=== PATIENT | male | born 1950 | race Caucasian/White ===

== ENCOUNTER 2017-01-21 09:41 | Emergency (ER) | payer OTHER, MEDICARE ==
[~2017-01-21] VITALS: Ht 177.8 cm; Wt 79.5 kg
[~2017-01-21 09:41] MED LIST: ALDACTONE 25MG25 M1 PO; ASPIRIN 32325 MG/TAB PO; ASPIRIN 81M81 MG/TA2 PO; ASPIRIN E.C. 8181 MG PO; ATORVASTATIN PO; BRILINTA90 MG PO; CARAFATE1 GM PO; CEPHALEXIN500 M1 PO; CLARITIN 1010 MG/TAB PO; CLEOCIN HC150 MG/CAP PO; COREG 6.256.25 MG/TA PO; COZAAR 25MG25 MG/TAB PO; EPA/GLA1 SGL PO; LASIX 20MG TABL20 MG PO; LASIX 40MG TABL40 MG PO; METOPROLOL25 MG PO; MULTIVITAMIN1 TA1 PO; NORCO 325 MG-51 TAB PO; PLAVIX 75MG TAB75 MG PO; ZOFRAN 4MG T4 MG/TAB PO
[2017-01-21 09:43] VITALS: BP 130/80; TEMP 98.3
[2017-01-21 10:22] LABS: BASO # 0.1 (0.0-0.2); BASO % 0.5 % (0.0-2.0); EOS # 0.2 (0.0-0.7); EOS % 1.4 % (0-4.0); GRAN # 9.4 (1.4-6.5); GRAN % 74.7 % (42.2-75.2); HEMATOCRIT 47.1 % (42.0-52.0); HEMOGLOBIN 16.3 g/dl (13.5-18.0); LYMPH # 1.4 (1.2-3.4); LYMPH % 11.4 % (20.0-51.0); MEAN CELL VOLUME 94 fl (80.0-100.0); MEAN CORPUSCULAR HEMOGLOBIN 32 pg (27.0-31.0); MEAN CORPUSCULAR HGB CONC 35 g/dl (33.0-37.0); MEAN PLATELET VOLUME 9.5 fl (7.4-10.4); MONO # 1.5 (0.1-0.6); MONO % 11.8 % (1.7-9.3); PLATELET COUNT 255 K/mm3 (130-400); RED BLOOD COUNT 5.04 M/mm3 (4.20-5.60); REDCELL DISTRIBUTION WIDTH-CV 12.7 % (11.5-14.5); WHITE BLOOD COUNT 12.5 K/mm3 (4.8-10.8)
[2017-01-21 10:39] LABS: ADJUSTED CALCIUM 9.2 mg/dL (8.4-10.2); ALBUMIN 4.1 gm/dL (3.5-5.0); BILIRUBIN,TOTAL 1.4 mg/dL (0.0-1.0); CALCIUM 9.3 mg/dL (8.4-10.2); CREATININE, serum 2.01 mg/dL (0.66-1.25); POTASSIUM 4.1 mmol/L (3.4-5.0); TOTAL PROTEIN 7.3 gm/dL (6.4-8.2)
[2017-01-21 11:38] LABS: PH 5 (5-8); SQUAMOUS EPITHELIAL None Seen /hpf; URINE APPEARANCE Clear; URINE BACTERIA None Seen /hpf; URINE BILIRUBIN Negative (NEGATIVE); URINE BLOOD 2+ (NEGATIVE); URINE COLOR Yellow; URINE GLUCOSE Negative (NEGATIVE); URINE KETONE Negative (NEGATIVE); URINE RBC 20-50 /hpf; URINE UROBILINOGEN Negative (NEGATIVE)
[2017-01-21 11:41] LABS: URINE WBC 20-50 /hpf
[2017-01-21] MEDS ORDERED: FLOMAX 0.40.4 MG/CAP PO (14:02)
[2017-01-21] MEDS ORDERED: PERCOCET 325 MG1 TA2 PO (14:02)
[2017-01-21] MEDS ORDERED: LEVAQUIN 5500 MG/TA1 PO (14:02)
[2017-01-21 14:38] VITALS: PULSE 78
== END 2017-01-21 14:42 | disposition home or self-care (01) ==
LOC: COL.ER 09:41
PROVIDERS: Nurse Practitioner
DX: N20.1 Calculus of ureter (principal); N39.0 Urinary tract infection, site not specified; I11.0 Hypertensive heart disease with heart failure; I50.9 Heart failure, unspecified; I25.10 Atherosclerotic heart disease of native coronary artery without angina pectoris; Z87.891 Personal history of nicotine dependence; Z79.82 Long term (current) use of aspirin; Z79.02 Long term (current) use of antithrombotics/antiplatelets; Z95.0 Presence of cardiac pacemaker; Z98.890 Other specified postprocedural states
CPT/HCPCS: J0696; J1170; J7040

== ENCOUNTER 2019-01-08 07:39 | Day surgery (SDC) | payer BC, MEDICARE ==
[2019-01-08] VITALS (11 sets, daily range): BP systolic 90–123; BP diastolic 69–94; PULSE 52–107; TEMP 97.4–97.9
[~2019-01-08] VITALS: Ht 177.8 cm; Wt 75.0 kg
[~2019-01-08 07:39] MED LIST changes: -ATORVASTATIN PO; +FLOMAX 0.40.4 MG/CAP PO; +LEVAQUIN 5500 MG/TA1 PO; +LIPITOR 40MG TA40 MG PO; -MULTIVITAMIN1 TA1 PO; +ONE-A-DAY ESSE1 EACH PO; +PERCOCET 325 MG1 TA2 PO
[2019-01-08 08:23] LABS: HEMATOCRIT 49.6 % (42.0-52.0); HEMOGLOBIN 16.7 g/dl (13.5-18.0); MEAN CELL VOLUME 95 fl (80.0-100.0); MEAN CORPUSCULAR HEMOGLOBIN 32 pg (27.0-31.0); MEAN CORPUSCULAR HGB CONC 34 g/dl (33.0-37.0); MEAN PLATELET VOLUME 9.3 fl (7.4-10.4); PLATELET COUNT 298 K/mm3 (130-400); RED BLOOD COUNT 5.22 M/mm3 (4.20-5.60); REDCELL DISTRIBUTION WIDTH-CV 13.6 % (11.5-14.5)
[2019-01-08 08:29] LABS: PROTHROMBIN TIME 11.5 SECONDS (9.7-12.8)
[2019-01-08 08:34] LABS: CALCIUM 9.2 mg/dL (8.4-10.2); CREATININE, serum 1.13 (0.66-1.25); POTASSIUM 4.9 mmol/L (3.4-5.0)
[2019-01-08] MEDS ORDERED: LASIX 40MG TABL40 MG PO (09:25)
--- NOTE | 2019-01-08 12:38 | NUR ---
SEE MERGE DOCUMENTATION FOR MEDICATION ADMINISTRATION TIMES AND INTRA/POST PROCEDURE SEDATION ASSESSMENTS.
--- NOTE | 2019-01-08 14:50 | NUR ---
Pt returned to EU 12 per bed s/p IVONE/gen change. Pt resting well. See Raphael's note.
--- NOTE | 2019-01-08 15:10 | NUR ---
PT TRANSFERRED TO [facility] AT THIS TIME. BEDSIDE REPORT WITH SHREE KNOWLES. VS MONITORS PLACED AT THIS TIME. SBP 108 AT THIS TIME. PT REMAINS ON 2L/NC WITH SPO2 RANGING 88-91%. PT DENIES SOA, AND BREATHING IS NOTED NON-LABORED AND EVEN AT THIS TIME. LUNGS AUSCULTATED BY THIS RN AND BENSON WITH CRACKLES NOTED TO BILATERAL BASES. PT PREVIOUSLY RECEIVING LASIX 20MG IV PRIOR TO TRANSFER FROM PERSONNEL SPECIALIST. THIS RN IN CONTACT WITH DR HECK TO REPORT THIS ASSESSMENT AND CURRENT VS'S. TO ENTER ORDERS REGARDING THIS.
[2019-01-08] MEDS ORDERED: CEPHALEXIN500 M1 PO (15:11)
--- NOTE | 2019-01-08 16:00 | NUR ---
THIS RN ON [facility] HELPING [facility] RN. PT FOUND 95% ON 2L/NC. TRIALED ON ROOM AIR AND FOUND AT 87% WHEN SLEEPING. 2L/NC PLACED AGAIN. BP 90/73. LASIX 20MG IV X1 CURRENTLY ORDERED. DR HECK CONTACTED AND UPDATED BY THIS RN. ORDERS TO ADMINISTER LASIX ORDERED. READ BACK AND VERIFIED.
--- NOTE | 2019-01-08 16:10 | NUR ---
O2 decreased to 1 L per NC.
--- NOTE | 2019-01-08 16:30 | NUR ---
O2 removed, pt on RA.
--- NOTE | 2019-01-08 17:26 | NUR ---
Report to French Dawn RN who assumed care at this time.
--- NOTE | 2019-01-08 18:00 | NUR ---
REVIEWED DISCHARGE INST. WITH PT ON CARE OF SITE/SHOWER. ALSO PT WILL PIANO MAKER NEW RX FOR KEFLEX ORDERED. REVIEWED WITH PT NEW APPTS MADE ALSO WITH VERBAL UNDERSTANDING. INT D'CD INTACT. PT UP IN ROOM DRESSED, VOIDED AGAIN. NO C/O, DISCHARGED AMB. TO CAR WITH FRIEND
== END 2019-01-08 18:00 | disposition home or self-care (01) ==
LOC: COL.CAR 07:39
PROVIDERS: Internal Medicine Cardiovascular Disease
DX: I25.10 Atherosclerotic heart disease of native coronary artery without angina pectoris (principal); I42.0 Dilated cardiomyopathy; I34.0 Nonrheumatic mitral (valve) insufficiency; I10 Essential (primary) hypertension; E78.2 Mixed hyperlipidemia; Z95.5 Presence of coronary angioplasty implant and graft; Z95.810 Presence of automatic (implantable) cardiac defibrillator; Z79.82 Long term (current) use of aspirin; I11.0 Hypertensive heart disease with heart failure; I50.22 Chronic systolic (congestive) heart failure; I42.9 Cardiomyopathy, unspecified; I25.2 Old myocardial infarction; I27.20 Pulmonary hypertension, unspecified; Z87.891 Personal history of nicotine dependence; Z79.02 Long term (current) use of antithrombotics/antiplatelets
CPT/HCPCS: C1882; J0690; J1200; J1940; J2704; J3010; J7030

== ENCOUNTER 2019-04-12 14:37 | Inpatient (IN) | payer BC, MEDICARE ==
[~2019-04-12] VITALS: Ht 179.1 cm; Wt 68.2 kg
[2019-04-23] MEDS ORDERED: COUMADIN 5MG5 MG/TAB PO (09:46)
[2019-04-23 09:49] VITALS: BP 92/62; PULSE 80; TEMP 98.6
--- NOTE | 2019-04-23 10:15 | NUR ---
MD Michael notifed of critical PT & INR levels
[2019-04-23 10:28] LABS: CALCIUM 8.9 mg/dL (8.4-10.2); CREATININE, serum 1.2 (0.66-1.25); MAGNESIUM 2.2 mg/dL (1.6-2.3); POTASSIUM 4.1 mmol/L (3.4-5.0)
[2019-04-23 11:15] LABS: BASO % 0.4 % (0.0-2.0); EOS % 0.2 % (0-4.0); GRAN # 8.9 (1.4-6.5); GRAN % 78.7 % (42.2-75.2); HEMATOCRIT 43.6 % (42.0-52.0); HEMOGLOBIN 14.9 g/dl (13.5-18.0); LYMPH % 8.6 % (20.0-51.0); MEAN CELL VOLUME 95 fl (80.0-100.0); MEAN CORPUSCULAR HEMOGLOBIN 33 pg (27.0-31.0); MEAN CORPUSCULAR HGB CONC 34 g/dl (33.0-37.0); MONO # 1.3 (0.1-0.6); MONO % 11.7 % (1.7-9.3); PLATELET COUNT 310 K/mm3 (130-400); RED BLOOD COUNT 4.59 M/mm3 (4.20-5.60); REDCELL DISTRIBUTION WIDTH-CV 12.9 % (11.5-14.5)
--- NOTE | 2019-04-23 11:21 | NUR ---
MD Michael notified of PT & INR levels - orders pending
[2019-04-23 11:24] LABS: PROTHROMBIN TIME 235.6 SECONDS (9.7-12.8)
[2019-04-23 11:25] LABS: INR 18.4 (0.8-3.0)
--- NOTE | 2019-04-23 11:35 | NUR ---
Pharmacy called for STAT Vitamin K med
[2019-04-23 11:48] LABS: BILIRUBIN UNCONJUGATED 2.6 mg/dL (0.0-1.1); BILIRUBIN,DIRECT 0.5 mg/dL (0.0-0.4); BILIRUBIN,TOTAL 3.2 mg/dL (0.0-1.0); TOTAL PROTEIN 7.5 gm/dL (6.4-8.2)
[2019-04-23 11:58] LABS: ALBUMIN 4.1 gm/dL (3.5-5.0)
--- NOTE | 2019-04-23 11:58 | NUR ---
MD Michael and Cardiology team in room to see pt. Hospitalist on unit and consulted for further evaluation. Pt educated - all questions answered
[2019-04-23 12:00] VITALS: BP 93/88; PULSE 80; TEMP 98.4
[2019-04-23 12:29] LABS: PROTHROMBIN TIME 231.2 SECONDS (9.7-12.8)
[2019-04-23 12:30] LABS: INR 18.1 (0.8-3.0)
--- NOTE | 2019-04-23 15:26 | NUR ---
OIL TESTER student met with the patient to discuss a discharge plan. The patient lives alone in [place]. The patient does not use DME and reports independence with ADLs. The patients PCP is Dr. Willard and patient receives medications from [facility] with no difficulties. The patient does not have advanced directives in the EMR. The patient was interested in completing DPOA-HC form. OIL TESTER student and nurse witnessed the form. A copy was placed in the patients chart and the original and copies were provided for the patient. The patient plans to return home upon discharge. There are no additional needs at this time.
[2019-04-23 16:00] VITALS: BP 101/72; PULSE 96; TEMP 98.2
[2019-04-23 16:27] LABS: INR 3.1 (0.8-3.0); PROTHROMBIN TIME 37.2 SECONDS (9.7-12.8)
--- NOTE | 2019-04-23 16:40 | NUR ---
MD Michael notified of 1600 INR & PT lab level - no new orders recieved
--- NOTE | 2019-04-23 17:00 | NUR ---
MD Michael and SYLVIA Waite contacted myself regarding restarting warfarin tonight d/t updated INR lab level. Maricruz and Sergey from pharmacy both spoken with regarding their concern for INR level continually dropping to sub-therapeutic d/t Vit. K administration. Maricruz pharmacist stated she was going to call MD Michael or SYLVIA Waite regarding reccommending Lovenox bridge.
--- NOTE | 2019-04-23 19:30 | NUR ---
Bedside shift report given. Day shift nurse, SHREE Sellers. Explained to patient that he would be getting his evening Coumadin dose. Pt expressed some concern regarding this, as his INR was very elevated initially. SHREE Sellers, explained to pt that Software Test And Validation Engineer wanted to continue with the coumadin as he was given a dose of Vit K and would still need anticoagulation. Patient accepting of this explaination.
--- NOTE | 2019-04-23 20:45 | NUR ---
At bedside; pt sitting in recliner watching TV. Denies any complaints at this time. Instructed that we will obtain EKG 2 hrs after Tikosyn dose to check how for any EKG changes. Will continue to monitor.
[2019-04-23 21:05] VITALS: BP 91/57; PULSE 98; TEMP 98.3
--- NOTE | 2019-04-23 23:15 | NUR ---
2 hour post Tikosyn EKG showed ST elevation in several leads and "acute WV". VS stable; patient resting comfortably in bed in no distress and denies any chest pain. High Heel Builder notified; no orders received at this time. Will continue to monitor.
[2019-04-23 23:19] VITALS: BP 100/71; PULSE 86; TEMP 98.3
[2019-04-24] VITALS (10 sets, daily range): BP systolic 91–107; BP diastolic 54–76; PULSE 82–100; TEMP 97.3–98.1
--- NOTE | 2019-04-24 02:45 | NUR ---
Dr. Romero here to assess patient and attempt a central line placement.
--- NOTE | 2019-04-24 04:00 | NUR ---
Dr. Lockhart here to make second attempt at placing central line; attempt not successful. Placed 18g in left neck.
[2019-04-24 05:29] LABS: BASO # 0.1 (0.0-0.2); BASO % 0.6 % (0.0-2.0); EOS # 0.2 (0.0-0.7); EOS % 1.8 % (0-4.0); GRAN % 68.8 % (42.2-75.2); HEMATOCRIT 40.8 % (42.0-52.0); HEMOGLOBIN 13.9 g/dl (13.5-18.0); LYMPH # 1.6 (1.2-3.4); LYMPH % 17.9 % (20.0-51.0); MEAN CELL VOLUME 94 fl (80.0-100.0); MEAN CORPUSCULAR HEMOGLOBIN 32 pg (27.0-31.0); MEAN CORPUSCULAR HGB CONC 34 g/dl (33.0-37.0); MEAN PLATELET VOLUME 9.6 fl (7.4-10.4); MONO # 0.9 (0.1-0.6); MONO % 10.7 % (1.7-9.3); PLATELET COUNT 279 K/mm3 (130-400); RED BLOOD COUNT 4.32 M/mm3 (4.20-5.60); REDCELL DISTRIBUTION WIDTH-CV 12.7 % (11.5-14.5)
[2019-04-24 05:44] LABS: CALCIUM 8.7 mg/dL (8.4-10.2); CREATININE, serum 1.12 (0.66-1.25); MAGNESIUM 2.3 mg/dL (1.6-2.3); POTASSIUM 3.9 mmol/L (3.4-5.0)
[2019-04-24 05:49] LABS: INR 1.7 (0.8-3.0); PROTHROMBIN TIME 20.2 SECONDS (9.7-12.8)
--- NOTE | 2019-04-24 07:18 | NUR ---
Report given to SHREE Plata. Patient care transfered.
--- NOTE | 2019-04-24 07:30 | NUR ---
0730: PT A&O X4. DENIES PAIN. 0900: PT AT [facility] 1045: PT RETURN FROM [facility].
--- NOTE | 2019-04-24 08:57 | NUR ---
Initial visit; Patient thanked Export Sales Manager for letting him know of the availability of Spiritual [facility] at [facility] [place].
[2019-04-24 13:49] LABS: INR 2.1 (0.8-3.0)
--- NOTE | 2019-04-24 16:50 | NUR ---
REPORT GIVEN TO SHREE GOLDBERG ON MEDICAL. 1709: PT AMBULATED TO MEDICAL FLOOR RM 309 WITHOUT DIFFICULTY WITH NURSE. PTS BELONGINGS CARRIED BY NURSE TO PTS ROOM AND CHART PLACED IN MEDICAL NURSES STATION CHART RACK.
--- NOTE | 2019-04-24 17:00 | NUR ---
Pt was admitted to room 309 from ICU. He is awake and A/Ox4, ambulating around room. Denies pain or discomfort. Saline lock to right AC is free of complications. Pt was oriented to room and to staff, expressed understanding. Denies any other needs.
--- NOTE | 2019-04-24 22:00 | NUR ---
Shift assessment complete. Patient ambulating in room, independently. Denies pain. Tikosyn dose given, RT notified to do a 2 hour post ekg. Denies further needs at this time. Will continue to monitor.
[2019-04-25] VITALS: BP 102/67; PULSE 89; TEMP 97.6
[2019-04-25 04:01] VITALS: BP 114/80; PULSE 106; TEMP 98.2
[2019-04-25 07:44] LABS: BASO % 0.5 % (0.0-2.0); EOS # 0.2 (0.0-0.7); EOS % 2.3 % (0-4.0); GRAN # 6.7 (1.4-6.5); GRAN % 77.5 % (42.2-75.2); HEMATOCRIT 41.3 % (42.0-52.0); HEMOGLOBIN 14.1 g/dl (13.5-18.0); LYMPH # 1.1 (1.2-3.4); LYMPH % 12.2 % (20.0-51.0); MEAN CELL VOLUME 94 fl (80.0-100.0); MEAN CORPUSCULAR HEMOGLOBIN 32 pg (27.0-31.0); MEAN CORPUSCULAR HGB CONC 34 g/dl (33.0-37.0); MEAN PLATELET VOLUME 9.6 fl (7.4-10.4); MONO # 0.6 (0.1-0.6); MONO % 7.2 % (1.7-9.3); PLATELET COUNT 342 K/mm3 (130-400); RED BLOOD COUNT 4.38 M/mm3 (4.20-5.60); REDCELL DISTRIBUTION WIDTH-CV 12.6 % (11.5-14.5)
[2019-04-25 07:56] LABS: ALBUMIN 3.9 gm/dL (3.5-5.0); BILIRUBIN,DIRECT 0.9 mg/dL (0.0-0.4); BILIRUBIN,TOTAL 2.9 mg/dL (0.0-1.0); CALCIUM 8.5 mg/dL (8.4-10.2); CREATININE, serum 1.13 (0.66-1.25); POTASSIUM 3.9 mmol/L (3.4-5.0); TOTAL PROTEIN 7.2 gm/dL (6.4-8.2)
[2019-04-25 08:07] LABS: PROTHROMBIN TIME 48.7 SECONDS (9.7-12.8)
[2019-04-25 08:13] LABS: MAGNESIUM 2.3 mg/dL (1.6-2.3)
--- NOTE | 2019-04-25 08:55 | NUR ---
Assessment completed, alert/oriented, vital signs stable, denies chest pain or discomfort, paced on tele/ distal pulses are palpable, patient has been NPO for possible heart cath today/ I have spoken with Cardiology about this and a time is still to be determined, patient does have INR of 4 today/ and is notified, patient denies other needs at this time, will continue to monitor
[2019-04-25 09:10] VITALS: BP 98/77; PULSE 105; TEMP 97.4
[2019-04-25 11:46] VITALS: BP 104/69; PULSE 96; TEMP 98.2
[2019-04-25 16:04] VITALS: BP 93/63; PULSE 90; TEMP 98.3
[2019-04-25 20:10] VITALS: BP 91/66; PULSE 83; TEMP 98.6
--- NOTE | 2019-04-25 20:15 | NUR ---
Shift assessment complete. Patient in bed, awake. Patient c/o dry cough since Tikosyn was started. Will pass on for cardiology to address. Denies pain. Denies further needs at this time. Will continue to monitor.
[2019-04-26] VITALS (8 sets, daily range): BP systolic 81–110; BP diastolic 51–77; PULSE 78–92; TEMP 97.2–98.1
--- NOTE | 2019-04-26 04:16 | NUR ---
Patient in bed, awake. Ambulating to BR independently. Denies pain. VS stable. Denies further needs at this time. Will continue to monitor.
[2019-04-26 06:11] LABS: BASO % 0.5 % (0.0-2.0); EOS # 0.3 (0.0-0.7); EOS % 3.8 % (0-4.0); GRAN # 6.1 (1.4-6.5); GRAN % 69.9 % (42.2-75.2); HEMATOCRIT 43.5 % (42.0-52.0); HEMOGLOBIN 14.9 g/dl (13.5-18.0); LYMPH # 1.6 (1.2-3.4); LYMPH % 17.9 % (20.0-51.0); MEAN CELL VOLUME 94 fl (80.0-100.0); MEAN CORPUSCULAR HEMOGLOBIN 32 pg (27.0-31.0); MEAN CORPUSCULAR HGB CONC 34 g/dl (33.0-37.0); MEAN PLATELET VOLUME 9.8 fl (7.4-10.4); MONO # 0.7 (0.1-0.6); MONO % 7.6 % (1.7-9.3); PLATELET COUNT 352 K/mm3 (130-400); RED BLOOD COUNT 4.61 M/mm3 (4.20-5.60); REDCELL DISTRIBUTION WIDTH-CV 12.6 % (11.5-14.5)
[2019-04-26 06:20] LABS: INR 5.7 (0.8-3.0); PROTHROMBIN TIME 70.5 SECONDS (9.7-12.8)
[2019-04-26 06:27] LABS: CALCIUM 8.8 mg/dL (8.4-10.2); CREATININE, serum 1.15 (0.66-1.25); MAGNESIUM 2.4 mg/dL (1.6-2.3); POTASSIUM 3.9 mmol/L (3.4-5.0)
[2019-04-26 08:05] LABS: INR 6.4 (0.8-3.0); PROTHROMBIN TIME 79.8 SECONDS (9.7-12.8)
--- NOTE | 2019-04-26 09:19 | NUR ---
Patient is awake and alert in room eating breakfast. States as it was reported at shift change that he has occasionally had a dry cough. He questions if it is the new medication or change of room. He stated he did not experience the cough while in the ICU. INR drawn this morning at 0500 noted to be 5.7, redraw at 0800 6.4, have placed a call to Dr. Rodriguez to notify, awaiting call back. Denies pain, call light and personal items are within reach.
--- NOTE | 2019-04-26 13:51 | NUR ---
SW attended clinical rounds. The patient's INR was up today. The clinical team plans to give vitamin K to the patient and switch him to a different blood thinner. No other additional needs at this time.
--- NOTE | 2019-04-26 18:40 | NUR ---
Patient is awake and alert in room, came out of room to refill water. States he feels well.
--- NOTE | 2019-04-26 20:10 | NUR ---
RECEIVED REPORT FROM HARINDER SY UP AND WALKING AROUND HIS ROOM. STEADY GAIT, AND NO COMPLAINTS OF PAIN OR DISCOMFORT AT THIS TIME. PT PHONE AND PERSONAL BELONGINGS WITHIN REACH. NO CONCERNS AT THIS TIME.
--- NOTE | 2019-04-27 02:10 | NUR ---
CONTACTED DR. HECK REGARDING AN ABNORMAL READING OF EKG AFTER ADMINISTRATION OF TIKOSYN. DR. HECK STATED THAT BECAUSE HE IS VPACED HE IS NOT OVERLY CONCERNED; THE REPORT WOULD BE MORE CONCERNING FOR SOMEONE WHO IS NOT PACED. PT IS CURRENTLY ASYMPTOMATIC AND SLEEPING. NO OTHER CONCERNS AT THIS TIME. CALL LIGHT AND PERSONAL BELONGINGS ARE WITHIN REACH.
[2019-04-27 03:58] VITALS: BP 98/71; PULSE 86; TEMP 98.1
[2019-04-27 06:23] LABS: INR 1.5 (0.8-3.0); PROTHROMBIN TIME 17.9 SECONDS (9.7-12.8)
[2019-04-27 06:34] LABS: ALBUMIN 3.9 gm/dL (3.5-5.0); BILIRUBIN,TOTAL 1.9 mg/dL (0.0-1.0); CALCIUM 8.9 mg/dL (8.4-10.2); CREATININE, serum 1.13 (0.66-1.25); POTASSIUM 3.7 mmol/L (3.4-5.0); TOTAL PROTEIN 7.5 gm/dL (6.4-8.2)
--- NOTE | 2019-04-27 07:55 | NUR ---
REPORT GIVEN TO HAILEY. DURING REPORT PT CAME TO THE NURSE'S DESK AND SHOWED US THAT HIS LEADS WERE OFF. TELE CALLED AND LET US KNOW. WE LET THEM KNOW THAT WE WOULD PUT THEM BACK ON RAY. PT STATED HE IS FEELING SOMETHING WEIRD IN HIS BELLY THAT BUBBLES UP TO HIS CHEST. IT'S NOT PAIN, HOWEVER HE FEELS LIKE IT COULD POTENTIALLY BE ANXIETY. THE PT IS SITTING ON HIS BED IN HIS ROOM. CALL LIGHT AND PHONE WITHIN REACH. NO OTHER CONCERNS AT THIS TIME.
[2019-04-27 08:04] VITALS: BP 105/80; PULSE 98; TEMP 97
[2019-04-27 09:22] LABS: BASO # 0.1 (0.0-0.2); BASO % 0.8 % (0.0-2.0); EOS # 0.4 (0.0-0.7); GRAN # 6.5 (1.4-6.5); GRAN % 67.8 % (42.2-75.2); HEMATOCRIT 45.6 % (42.0-52.0); HEMOGLOBIN 15.1 g/dl (13.5-18.0); LYMPH # 1.8 (1.2-3.4); LYMPH % 19.1 % (20.0-51.0); MEAN CELL VOLUME 96 fl (80.0-100.0); MEAN CORPUSCULAR HEMOGLOBIN 32 pg (27.0-31.0); MEAN CORPUSCULAR HGB CONC 33 g/dl (33.0-37.0); MEAN PLATELET VOLUME 9.9 fl (7.4-10.4); MONO # 0.8 (0.1-0.6); PLATELET COUNT 438 K/mm3 (130-400); RED BLOOD COUNT 4.77 M/mm3 (4.20-5.60); REDCELL DISTRIBUTION WIDTH-CV 12.9 % (11.5-14.5)
--- NOTE | 2019-04-27 09:40 | NUR ---
Patient is awake and alert in room, did replace telemetry patches. Patient verbalized that last night he was feeling some shortness of breath. Stated that he would fall asleep and then felt like he would wake up gasping and would then feel fine. He stated that he wasnt sure if he was having some anxiety. Did place call to Dr. Rodriguez. Received order to obtain CBC and administer a one time dose of lasix 20mg.
[2019-04-27] MEDS ORDERED: COREG 3.123.125 MG/T PO (10:47)
[2019-04-27] MEDS ORDERED: COZAAR 25MG25 MG/TAB PO (10:47)
[2019-04-27] MEDS ORDERED: TIKOSYN0.125 MG PO (10:48)
[2019-04-27] MEDS ORDERED: ELIQUIS 5MG PO (10:50)
[2019-04-27 11:21] VITALS: BP 96/65; PULSE 87; TEMP 97.7
--- NOTE | 2019-04-27 12:21 | NUR ---
Discharge instructions reviewed with patient, verbalized understanding. Understands to pickling machine operator new prescriptions. Personal belongings gathered and taken with patient. Escorted to private vehicle by [facility] staff.
== END 2019-04-27 12:31 | disposition home or self-care (01) | DRG 309 ==
LOC: ICU 04-23 08:43 → MEDICAL 04-23 14:35
PROVIDERS: Nurse Practitioner; Physician Assistant; ADMIT Internal Medicine Cardiovascular Disease
PROC: 4B02XTZ Measurement of Cardiac Defibrillator, External Approach (ICD-10-PCS; principal; 2019-04-23)
DX: I48.0 Paroxysmal atrial fibrillation (principal); I50.42 Chronic combined systolic (congestive) and diastolic (congestive) heart failure; Z79.01 Long term (current) use of anticoagulants; R79.1 Abnormal coagulation profile; R04.0 Epistaxis; R94.5 Abnormal results of liver function studies; I25.2 Old myocardial infarction; Z95.5 Presence of coronary angioplasty implant and graft; I25.10 Atherosclerotic heart disease of native coronary artery without angina pectoris; Z79.02 Long term (current) use of antithrombotics/antiplatelets; Z82.49 Family history of ischemic heart disease and other diseases of the circulatory system; Z87.891 Personal history of nicotine dependence; Z45.02 Encounter for adjustment and management of automatic implantable cardiac defibrillator
CPT/HCPCS: 99222; 99232-AI; A9500; J1940; J2785; J3430

== ENCOUNTER 2019-05-02 06:33 | Day surgery (SDC) | payer BC, MEDICARE ==
[2019-05-02] VITALS (12 sets, daily range): BP systolic 90–110; BP diastolic 70–81; PULSE 78–100; TEMP 97.7
[~2019-05-02] VITALS: Ht 180.3 cm; Wt 73.5 kg
[~2019-05-02 06:33] MED LIST changes: +COREG 3.123.125 MG/T PO; +COUMADIN 5MG5 MG/TAB PO; +ELIQUIS 5MG PO; +TIKOSYN0.125 MG PO
[2019-05-02] MEDS ORDERED: ELIQUIS 5MG PO (07:41)
[2019-05-02] MEDS ORDERED: COREG 3.123.125 MG/T PO (07:46)
[2019-05-02] MEDS ORDERED: COZAAR 25MG25 MG/TAB PO (07:50)
[2019-05-02] MEDS ORDERED: TIKOSYN0.125 MG PO (07:51)
[2019-05-02 07:52] LABS: HEMOGLOBIN 15.4 g/dl (13.5-18.0); MEAN CELL VOLUME 95 fl (80.0-100.0); MEAN CORPUSCULAR HEMOGLOBIN 32 pg (27.0-31.0); MEAN CORPUSCULAR HGB CONC 34 g/dl (33.0-37.0); PLATELET COUNT 480 K/mm3 (130-400); RED BLOOD COUNT 4.85 M/mm3 (4.20-5.60)
[2019-05-02 07:54] LABS: INR 1.4 (0.8-3.0); PROTHROMBIN TIME 16.7 SECONDS (9.7-12.8)
[2019-05-02] MEDS ORDERED: PLAVIX 75MG TAB75 MG PO (07:55)
[2019-05-02 07:57] LABS: PARTIAL THROMBOPLASTIN TIME 33.1 SECONDS (26.0-37.0)
[2019-05-02 08:09] LABS: CALCIUM 9.4 mg/dL (8.4-10.2); CREATININE, serum 1.3 (0.66-1.25); POTASSIUM 4.6 mmol/L (3.4-5.0)
--- NOTE | 2019-05-02 09:34 | NUR ---
SEE MERGE REPORT FOR MEDICATION ADMINISTRATION TIMES WELL INTRA/POST SEDATION ASSESSMENTS.
--- NOTE | 2019-05-02 10:16 | NUR ---
Initial visit; Patient thanked Irrigating Pump Operator for offering comfort and prayer prior to his surgical procedure and wishing him God's blessings and a thorough and speedy recovery.
[2019-05-02] MEDS ORDERED: LASIX 20MG TABL20 MG PO (10:17)
--- NOTE | 2019-05-02 10:20 | NUR ---
Pt returned to EU 12 per bed s/p heart cath. Pt resting well in bed.
--- NOTE | 2019-05-02 13:20 | NUR ---
R radial arm band removed from cath site. Site remains soft, C/D/I, covered with band aid and gauze and wrapped with coban. Pt dar well.
--- NOTE | 2019-05-02 14:30 | NUR ---
Pt has ambulated, voided and dar PO intake s n/v. PIV removed with catheter intact.
--- NOTE | 2019-05-02 15:10 | NUR ---
Pt discharged per w/c by nurse with friend Radha.
== END 2019-05-02 15:30 | disposition home or self-care (01) ==
LOC: COL.CAR 06:33
PROVIDERS: Internal Medicine Cardiovascular Disease
DX: I25.10 Atherosclerotic heart disease of native coronary artery without angina pectoris (principal); R94.39 Abnormal result of other cardiovascular function study; I11.0 Hypertensive heart disease with heart failure; I50.9 Heart failure, unspecified; I42.0 Dilated cardiomyopathy; I34.0 Nonrheumatic mitral (valve) insufficiency; I48.0 Paroxysmal atrial fibrillation; I25.2 Old myocardial infarction; Z85.828 Personal history of other malignant neoplasm of skin; Z88.8 Allergy status to other drugs, medicaments and biological substances; Z79.01 Long term (current) use of anticoagulants; Z79.02 Long term (current) use of antithrombotics/antiplatelets; Z87.891 Personal history of nicotine dependence; Z83.3 Family history of diabetes mellitus; Z82.49 Family history of ischemic heart disease and other diseases of the circulatory system; E78.2 Mixed hyperlipidemia
CPT/HCPCS: C1769; C1887; J1644; J1940; J2250; J3010; Q9967

== ENCOUNTER 2019-05-15 05:37 | Emergency (ER) | payer BC, MEDICARE ==
[~2019-05-15] VITALS: Ht 177.8 cm; Wt 73.2 kg
[2019-05-15 05:48] VITALS: TEMP 97.8
[2019-05-15 06:03] LABS: BASO # 0.1 (0.0-0.2); BASO % 0.8 % (0.0-2.0); EOS # 0.3 (0.0-0.7); EOS % 2.5 % (0-4.0); GRAN # 6.9 (1.4-6.5); GRAN % 70.4 % (42.2-75.2); HEMATOCRIT 45.6 % (42.0-52.0); LYMPH # 1.7 (1.2-3.4); LYMPH % 17.2 % (20.0-51.0); MEAN CELL VOLUME 96 fl (80.0-100.0); MEAN CORPUSCULAR HEMOGLOBIN 32 pg (27.0-31.0); MEAN CORPUSCULAR HGB CONC 33 g/dl (33.0-37.0); MEAN PLATELET VOLUME 9.2 fl (7.4-10.4); MONO # 0.9 (0.1-0.6); MONO % 8.9 % (1.7-9.3); PLATELET COUNT 491 K/mm3 (130-400); RED BLOOD COUNT 4.75 M/mm3 (4.20-5.60); REDCELL DISTRIBUTION WIDTH-CV 13.4 % (11.5-14.5)
[2019-05-15 06:11] LABS: INR 1.5 (0.8-3.0); PROTHROMBIN TIME 17.4 SECONDS (9.7-12.8)
[2019-05-15 06:12] LABS: ALBUMIN 4.4 gm/dL (3.5-5.0); BILIRUBIN,TOTAL 2.1 mg/dL (0.0-1.0); CALCIUM 9.4 mg/dL (8.4-10.2); CREATININE, serum 1.41 (0.66-1.25); POTASSIUM 4.1 mmol/L (3.4-5.0); TOTAL PROTEIN 7.7 gm/dL (6.4-8.2)
[2019-05-15 06:23] LABS: TROPONIN-I 0.014 ng/mL (0.000-0.035)
[2019-05-15 11:04] VITALS: BP 98/75; PULSE 93
== END 2019-05-15 11:12 | disposition home or self-care (01) ==
LOC: COL.ER 05:37
PROVIDERS: Emergency Medicine
DX: J81.1 Chronic pulmonary edema (principal); I25.10 Atherosclerotic heart disease of native coronary artery without angina pectoris; I50.9 Heart failure, unspecified; Z95.5 Presence of coronary angioplasty implant and graft; Z98.890 Other specified postprocedural states; Z79.01 Long term (current) use of anticoagulants; Z95.810 Presence of automatic (implantable) cardiac defibrillator
CPT/HCPCS: J1940

== ENCOUNTER 2019-05-23 05:52 | Emergency (ER) | payer BC, MEDICARE ==
[~2019-05-23] VITALS: Ht 177.8 cm; Wt 74.1 kg
[2019-05-23 05:59] VITALS: TEMP 97.6
[2019-05-23 06:28] LABS: INR 1.9 (0.8-3.0); PROTHROMBIN TIME 22.8 SECONDS (9.7-12.8)
[2019-05-23 06:29] LABS: BASO # 0.1 (0.0-0.2); BASO % 0.6 % (0.0-2.0); EOS # 0.1 (0.0-0.7); EOS % 1.8 % (0-4.0); GRAN # 5.8 (1.4-6.5); GRAN % 74.5 % (42.2-75.2); HEMATOCRIT 40.8 % (42.0-52.0); HEMOGLOBIN 13.6 g/dl (13.5-18.0); LYMPH # 1.2 (1.2-3.4); LYMPH % 14.8 % (20.0-51.0); MEAN CELL VOLUME 96 fl (80.0-100.0); MEAN CORPUSCULAR HEMOGLOBIN 32 pg (27.0-31.0); MEAN CORPUSCULAR HGB CONC 33 g/dl (33.0-37.0); MEAN PLATELET VOLUME 9.4 fl (7.4-10.4); MONO # 0.6 (0.1-0.6); MONO % 8.2 % (1.7-9.3); PLATELET COUNT 320 K/mm3 (130-400); RED BLOOD COUNT 4.25 M/mm3 (4.20-5.60); REDCELL DISTRIBUTION WIDTH-CV 13.4 % (11.5-14.5)
[2019-05-23 07:13] LABS: ALANINE AMINOTRANSFERASE 31 U/L (21-72); ALBUMIN 4.1 gm/dL (3.5-5.0); ALKALINE PHOSPHATASE 82 U/L (50-136); ANION GAP 9 mmol/L (7-16); AST,SGOT 38 U/L (15-37); BLOOD UREA NITROGEN 21 mg/dL (9-20); CALCIUM 9.1 mg/dL (8.4-10.2); CARBON DIOXIDE 23 mmol/L (22-30); CHLORIDE 108 mmol/L (98-107); CREATININE, serum 1.51 (0.66-1.25); GLUCOSE 139 mg/dL (74-106); POTASSIUM 3.9 mmol/L (3.4-5.0); SODIUM 140 mmol/L (137-145)
[2019-05-23 07:25] LABS: TROPONIN-I < 0.012 ng/mL (0.000-0.035)
--- NOTE | 2019-05-23 13:40 | NUR ---
SARAI responded to ED consult. The patient qualified for continuous oxygen. SARAI met with the patient to discuss qualifying and presented and explained the Patient Choice Form for DME. The patient chose [facility]. SARAI contacted and faxed the patient's oxygen order to Bhavana at [facility]. Bhavana reports that they will deliver a portable tank to the patient's room. SARAI informed the ED doctor of the above information. No additional needs.
[2019-05-23 14:10] VITALS: BP 105/87; PULSE 88
== END 2019-05-23 14:10 | disposition home or self-care (01) ==
LOC: COL.ER 05:52
PROVIDERS: Emergency Medicine
DX: R09.02 Hypoxemia (principal); I50.9 Heart failure, unspecified; I25.10 Atherosclerotic heart disease of native coronary artery without angina pectoris; I48.91 Unspecified atrial fibrillation; Z95.5 Presence of coronary angioplasty implant and graft
CPT/HCPCS: J1940

== ENCOUNTER 2019-05-24 01:04 | Inpatient (IN) | payer BC, MEDICARE ==
[2019-05-24] VITALS (569 sets, daily range): BP systolic 82–107; BP diastolic 62–74; PULSE 80–98; TEMP 97.6–98.6; O2SAT 86–100
[~2019-05-24] VITALS: Ht 177.8 cm; Wt 69.3 kg
--- NOTE | 2019-05-24 03:10 | NUR ---
Patient arrived to unit via ER gurney accompanied by ER nurse. Patient stood and transferred to unit bed with no issues. Oriented to unit, POC, and encouraged to ask questions. Attached to CRM monitor and provider in room shortly after arrival.
[2019-05-24 03:56] LABS: BASO # 0.1 (0.0-0.2); BASO % 0.6 % (0.0-2.0); EOS # 0.1 (0.0-0.7); EOS % 0.5 % (0-4.0); GRAN # 7.5 (1.4-6.5); GRAN % 76.4 % (42.2-75.2); HEMATOCRIT 40.6 % (42.0-52.0); HEMOGLOBIN 13.4 g/dl (13.5-18.0); LYMPH # 1.2 (1.2-3.4); LYMPH % 12.4 % (20.0-51.0); MEAN CELL VOLUME 96 fl (80.0-100.0); MEAN CORPUSCULAR HEMOGLOBIN 32 pg (27.0-31.0); MEAN CORPUSCULAR HGB CONC 33 g/dl (33.0-37.0); MEAN PLATELET VOLUME 9.2 fl (7.4-10.4); MONO % 9.8 % (1.7-9.3); PLATELET COUNT 311 K/mm3 (130-400); RED BLOOD COUNT 4.22 M/mm3 (4.20-5.60); REDCELL DISTRIBUTION WIDTH-CV 13.5 % (11.5-14.5)
[2019-05-24 04:06] LABS: ALBUMIN 4.1 gm/dL (3.5-5.0); BILIRUBIN,TOTAL 2.3 mg/dL (0.0-1.0); CALCIUM 8.9 mg/dL (8.4-10.2); CREATININE, serum 1.47 (0.66-1.25); POTASSIUM 3.9 mmol/L (3.4-5.0)
--- NOTE | 2019-05-24 09:08 | NUR ---
Report received from Madison SWANN and care resumed. Pt resting upon assessment. Vitals stable and denies any pain. AM meds given. Waiting on cardiology and pulmonary consults at this time. Will continue to follow.
--- NOTE | 2019-05-24 09:48 | NUR ---
Dr Rodriguez in to see pt at this time. No new orders.
--- NOTE | 2019-05-24 10:28 | NUR ---
Initial visit; Patient thanked Contract Mail Carrier for looking in on him and offering God's blessings and keeping him in Contract Mail Carrier's prayers.
--- NOTE | 2019-05-24 14:42 | NUR ---
television maintenance worker met with patient to discuss discharge planning. Patient states he lives alone and has roommates that live below him. Patient works at the local [employer] district and has BCBS primary and Medicare secondary. Patient states he has part D drug coverage as well as coverage under BCBS. Patient was seen in the emergency room on 05/23/19 and home oxygen was set up through [facility]. Patient has been independent with his activities of daily living prior to illness and plans to return home. Patient's primary care provider is Dr Aranda. Patient states he has advance directives and they should be on file with the hospital.
--- NOTE | 2019-05-24 19:30 | NUR ---
Bedside report received from SHREE Thompson. Patient sleeping throughout report, IV infusing well, reviewed with handoff, care assumed at this time.
--- NOTE | 2019-05-24 19:37 | NUR ---
Report given to Jimena SWANN and care transfered.
--- NOTE | 2019-05-24 23:00 | NUR ---
Patient asleep with head of bed elevated, easy to awaken verablly. PICC line infusing well. Patient used urinal at bedside, denies pain or discomfort at this time. Encouraged to use call light for assistance.
[2019-05-25] VITALS (674 sets, daily range): BP systolic 83–102; BP diastolic 64–81; PULSE 84–104; TEMP 97.4–98.3; O2SAT 86–100
--- NOTE | 2019-05-25 03:18 | NUR ---
Patient resting in bed with eyes closed. Uses urinal at bedside per self, encouraged to call for assistance with standing and any ambulation, reoriented to call light for TV use. PICC infusing well, denies pain or discomfort at this time.
--- NOTE | 2019-05-25 06:39 | NUR ---
Patient sitting up in bed watching TV. Denies pain or discomfort at this time, PICC infusing well, encouraged to call for assistance, using urinal at bedside without complaints or difficulties.
--- NOTE | 2019-05-25 07:27 | NUR ---
Bedside report given to SHREE Thompson. IV rates reviewed. Patient requested different breakfast that was called to dietary, care transferred at this time. Patient complains of cramping legs occasionally when repositioning but denies any shortness of breath.
--- NOTE | 2019-05-25 07:47 | NUR ---
Report received from Charleen SWANN and care resumed.
[2019-05-25 07:49] LABS: BASO # 0.1 (0.0-0.2); BASO % 0.9 % (0.0-2.0); EOS # 0.1 (0.0-0.7); EOS % 2.3 % (0-4.0); GRAN # 3.6 (1.4-6.5); GRAN % 62.8 % (42.2-75.2); HEMATOCRIT 42.5 % (42.0-52.0); LYMPH # 1.3 (1.2-3.4); LYMPH % 22.5 % (20.0-51.0); MEAN CELL VOLUME 96 fl (80.0-100.0); MEAN CORPUSCULAR HEMOGLOBIN 32 pg (27.0-31.0); MEAN CORPUSCULAR HGB CONC 33 g/dl (33.0-37.0); MEAN PLATELET VOLUME 9.6 fl (7.4-10.4); MONO # 0.7 (0.1-0.6); MONO % 11.3 % (1.7-9.3); PLATELET COUNT 287 K/mm3 (130-400); RED BLOOD COUNT 4.45 M/mm3 (4.20-5.60); REDCELL DISTRIBUTION WIDTH-CV 13.2 % (11.5-14.5)
[2019-05-25 08:02] LABS: ALBUMIN 4.1 gm/dL (3.5-5.0); BILIRUBIN,TOTAL 2.3 mg/dL (0.0-1.0); CALCIUM 8.6 mg/dL (8.4-10.2); CREATININE, serum 1.27 (0.66-1.25); POTASSIUM 3.5 mmol/L (3.4-5.0); TOTAL PROTEIN 7.2 gm/dL (6.4-8.2)
--- NOTE | 2019-05-25 09:16 | NUR ---
Assessment complete. Pt denies any pain. Does note to be having some leg cramping. AM labs resulted with low potassium. Protocol ordered. Pt helped up to chair for breakfast. Tolerated without increased shortness of breath. AM meds given. Dr Mendez in to see pt. No changes at this time. Pt now back in bed resting quietly. Will continue to follow.
--- NOTE | 2019-05-25 13:21 | NUR ---
Dr Henriquez in to see pt at this time. Stated pt to stay in unit due to soft blood pressures and current heart function. Ok for IMCU status which pt already was. Will cotmariahnue to follow.
--- NOTE | 2019-05-25 19:18 | NUR ---
Report given to Elissa SWANN and care transfered.
--- NOTE | 2019-05-25 19:30 | NUR ---
Received report from SHREE Thompson.
[2019-05-26] VITALS (808 sets, daily range): BP systolic 81–89; BP diastolic 58–70; PULSE 97–119; TEMP 97.6–98.2; O2SAT 83–100
[2019-05-26 06:43] LABS: BASO # 0.1 (0.0-0.2); BASO % 0.9 % (0.0-2.0); EOS # 0.2 (0.0-0.7); EOS % 4.5 % (0-4.0); GRAN # 3.2 (1.4-6.5); GRAN % 58.7 % (42.2-75.2); HEMATOCRIT 44.8 % (42.0-52.0); LYMPH # 1.4 (1.2-3.4); LYMPH % 25.3 % (20.0-51.0); MEAN CELL VOLUME 94 fl (80.0-100.0); MEAN CORPUSCULAR HEMOGLOBIN 32 pg (27.0-31.0); MEAN CORPUSCULAR HGB CONC 34 g/dl (33.0-37.0); MEAN PLATELET VOLUME 8.9 fl (7.4-10.4); MONO # 0.6 (0.1-0.6); MONO % 10.4 % (1.7-9.3); PLATELET COUNT 305 K/mm3 (130-400); RED BLOOD COUNT 4.76 M/mm3 (4.20-5.60); REDCELL DISTRIBUTION WIDTH-CV 13.2 % (11.5-14.5)
[2019-05-26 06:53] LABS: CREATININE, serum 1.19 (0.66-1.25); POTASSIUM 3.6 mmol/L (3.4-5.0)
--- NOTE | 2019-05-26 07:28 | NUR ---
Report given to SHREE Marie.
--- NOTE | 2019-05-26 09:36 | NUR ---
Patient provided recliner and assited to use. Denies further needs at this time. Care ongoing.
--- NOTE | 2019-05-26 14:30 | NUR ---
Dr. Henriquez rounds at this time. POC discussed with patient and education provided.
--- NOTE | 2019-05-26 17:12 | NUR ---
Dr. Mendez rounds at this time. No new orders recieved.
[2019-05-27] VITALS (404 sets, daily range): BP systolic 79–98; BP diastolic 52–77; PULSE 80–103; TEMP 97.5–98.5; O2SAT 88–99
[2019-05-27 05:52] LABS: BASO # 0.1 (0.0-0.2); EOS # 0.3 (0.0-0.7); EOS % 4.5 % (0-4.0); GRAN # 3.5 (1.4-6.5); GRAN % 59.8 % (42.2-75.2); HEMATOCRIT 44.7 % (42.0-52.0); HEMOGLOBIN 14.9 g/dl (13.5-18.0); LYMPH # 1.4 (1.2-3.4); LYMPH % 23.5 % (20.0-51.0); MEAN CELL VOLUME 94 fl (80.0-100.0); MEAN CORPUSCULAR HEMOGLOBIN 31 pg (27.0-31.0); MEAN CORPUSCULAR HGB CONC 33 g/dl (33.0-37.0); MEAN PLATELET VOLUME 9.3 fl (7.4-10.4); MONO # 0.6 (0.1-0.6); PLATELET COUNT 302 K/mm3 (130-400); RED BLOOD COUNT 4.76 M/mm3 (4.20-5.60); REDCELL DISTRIBUTION WIDTH-CV 12.9 % (11.5-14.5)
[2019-05-27 05:55] LABS: ALBUMIN 4.1 gm/dL (3.5-5.0); BILIRUBIN,TOTAL 1.2 mg/dL (0.0-1.0); CALCIUM 9.1 mg/dL (8.4-10.2); CREATININE, serum 1.21 (0.66-1.25); POTASSIUM 3.6 mmol/L (3.4-5.0); TOTAL PROTEIN 7.3 gm/dL (6.4-8.2)
--- NOTE | 2019-05-27 08:00 | NUR ---
PATIENT IS BORED AND WANTS TX RIGHT AWAY WAITING FOR PROVIDER
--- NOTE | 2019-05-27 16:45 | NUR ---
TRANSPORT PATIENT TO FLOOR ROOM 357, NURSE REPORT GIVEN TO CHAPITO SWANN, PATIENT DENIES DISCOMFORT
--- NOTE | 2019-05-27 16:57 | NUR ---
PT TO ROOM 357 PER WHEEL CHAIR. REPORT FROM VIGNESH SWANN ICU.
--- NOTE | 2019-05-27 20:00 | NUR ---
Assessment complete. Alert and oriented. Denies any pain or discomfort at this time. Tele monitor in place, leads checked. HOANG PICC patent, flushed, dressing CDI. Medication adminstered as ordered. Noticed bed was not in lowest position. Pt request to keep bed raised at his own level. Educated pt on risk for falls, pt acknowledged understanding but became upset during education. Needs met at this time. Call light within reach.
[2019-05-28] VITALS (7 sets, daily range): BP systolic 84–109; BP diastolic 60–89; PULSE 83–110; TEMP 97–98
--- NOTE | 2019-05-28 00:08 | NUR ---
2330: 2HHR POST TIKOSYN EKG OBTAINED ORDERED. READING VENTRICULAR PACED WITH MARKED ST ELEVATION AND DEPRESSION. PATIENT DENIES C/O CHEST PAIN OR DISCOMFORT. NO SHORTNESS OF BREATHE. SEE FLOWSHEET FOR FVS OBTAINED AT BASELINE. 2343: [facility] HOSPITALIST DEMAR MAURICE. COMMUNICATION TO NOTIFY CARDIOLOGY. 2348: DR WAGONER [facility] PAGED. 2351: CALL BACK FROM DR WAGONER. INFORMED OF ABOVE DOCUMENTATION. COMMUNICATED THAT PATIENT HAS A PACEMAKER. COMMUNICATION THAT ST ELEVATION CANNOT BE READ WITH A PACE MAKER. ORDER FOR TROPONIN AND TO CONTINUE TO MONITOR. PATIENT NOTIFIED OF PLAN OF CARE AND CARDIOLOGY COMMUNICATION. NO QUESTIONS OR CONCERNS,
--- NOTE | 2019-05-28 06:20 | NUR ---
Pt slept throughout the night without any complaints. EKG post Tikosyn showed ST elevation. Asymptomatic. VS stable. SHREE Bernard notified seismic prospecting observer. Labs ordered. Trp WNL. Pt voiced no concerns. Meds given as ordered. Call light within reach.
--- NOTE | 2019-05-28 07:05 | NUR ---
Report given to SHREE Buenrostro.
[2019-05-28 08:31] LABS: BASO # 0.1 (0.0-0.2); BASO % 0.9 % (0.0-2.0); EOS # 0.4 (0.0-0.7); EOS % 5.6 % (0-4.0); GRAN # 4.1 (1.4-6.5); GRAN % 60.5 % (42.2-75.2); HEMATOCRIT 45.4 % (42.0-52.0); HEMOGLOBIN 14.8 g/dl (13.5-18.0); LYMPH # 1.5 (1.2-3.4); LYMPH % 21.8 % (20.0-51.0); MEAN CELL VOLUME 95 fl (80.0-100.0); MEAN CORPUSCULAR HEMOGLOBIN 31 pg (27.0-31.0); MEAN CORPUSCULAR HGB CONC 33 g/dl (33.0-37.0); MEAN PLATELET VOLUME 9.6 fl (7.4-10.4); MONO # 0.7 (0.1-0.6); MONO % 10.8 % (1.7-9.3); PLATELET COUNT 326 K/mm3 (130-400); RED BLOOD COUNT 4.77 M/mm3 (4.20-5.60); REDCELL DISTRIBUTION WIDTH-CV 13.1 % (11.5-14.5)
[2019-05-28 08:34] LABS: CREATININE, serum 1.15 (0.66-1.25); MAGNESIUM 2.5 mg/dL (1.6-2.3); POTASSIUM 3.6 mmol/L (3.4-5.0)
--- NOTE | 2019-05-28 08:56 | NUR ---
Consumer Services Advisor attended clinical rounds with the team. Patient will need to be seen again by Cardiology prior to discharge. Patient states he is ready to go home today. SW will continue to follow as needed.
--- NOTE | 2019-05-28 09:00 | NUR ---
0800-Assessment Completed. Pt alert/oriented x4, resting in bed. Telemetry on. Pt denies c/o pain, denies c/o shortness of breath noted at rest. Lungs clear to auscultation. INT-patent, intact, no reddness noted. Skin: cool, dry and intact.
--- NOTE | 2019-05-28 09:11 | NUR ---
Provided pt with Heart Failure booklet and discussed education regarding HF. Pt verbalized understanding and denies questions. Provided pt with scale to take home to obtain daily weights.
[2019-05-29 03:25] VITALS: BP 87/64; PULSE 91; TEMP 97.7
[2019-05-29 05:47] LABS: CALCIUM 8.9 mg/dL (8.4-10.2); CREATININE, serum 1.22 (0.66-1.25); MAGNESIUM 2.5 mg/dL (1.6-2.3); POTASSIUM 3.8 mmol/L (3.4-5.0)
--- NOTE | 2019-05-29 07:00 | NUR ---
Report received from Nash Bernard. PT in bed resting, denies needs, will continue to monitor.
[2019-05-29 07:30] VITALS: BP 89/69; PULSE 100; TEMP 97.7
--- NOTE | 2019-05-29 08:58 | NUR ---
Assessment charted.Pt resting in bed, denies needs, discussed current BP. Per Latisha, PA will wait to give lasix and spiranalactone. PICC to HOANG flushes and good blood return. Pt doiing well, denies pain. Will continue to monitor.
--- NOTE | 2019-05-29 10:40 | NUR ---
0800 Assessment completed. Patient alert and orientated x4, resting in bed. Telemetry on. Picc line in right upper arm, intact, covered by jerome dressing. Pt denies any pain or shortness of breath. Lungs clear to auscultate. Pt request the door stay open. Call light within reach.
[2019-05-29 11:09] VITALS: BP 98/58; PULSE 91; TEMP 97.7
[2019-05-29] MEDS ORDERED: LASIX 40MG TABL40 MG PO (14:26)
--- NOTE | 2019-05-29 16:50 | NUR ---
Discharge teaching completed at this time. Reviewed discharge packet, script, f/u appointments, answered all questions. Pt left wtih all belongings, ok per hospitalist for pt to drive himself home. Discussed PICC home care instructions. Pt left with all belongings, criteria met.
== END 2019-05-29 16:45 | disposition home or self-care (01) | DRG 291 ==
LOC: COL.ER 01:04 → ICU 02:00 → MEDICAL 05-27 17:42
PROVIDERS: Hospitalist; Internal Medicine; Nurse Practitioner Family; ADMIT Student in an Organized Health Care Education/Training Program
PROC: 02HV33Z Insertion of Infusion Device into Superior Vena Cava, Percutaneous Approach (ICD-10-PCS; principal; 2019-05-24)
PROC: 5A09357 Assistance with Respiratory Ventilation, Less than 24 Consecutive Hours, Continuous Positive Airway Pressure (ICD-10-PCS; 2019-05-24)
DX: I11.0 Hypertensive heart disease with heart failure (principal); J96.01 Acute respiratory failure with hypoxia; N17.9 Acute kidney failure, unspecified; E87.3 Alkalosis; I48.91 Unspecified atrial fibrillation; I50.43 Acute on chronic combined systolic (congestive) and diastolic (congestive) heart failure; I25.10 Atherosclerotic heart disease of native coronary artery without angina pectoris; Z95.820 Peripheral vascular angioplasty status with implants and grafts; I95.9 Hypotension, unspecified; E78.5 Hyperlipidemia, unspecified; I34.0 Nonrheumatic mitral (valve) insufficiency; I42.0 Dilated cardiomyopathy; Z87.891 Personal history of nicotine dependence
CPT/HCPCS: 99223-AI; 99232-AI; 99233-AI; 99239; C1751; J1250; J1940

== ENCOUNTER 2019-06-01 16:46 | Inpatient (IN) | payer BC, MEDICARE ==
[~2019-06-01] VITALS: Ht 177.8 cm; Wt 64.8 kg
[2019-06-01] VITALS (134 sets, daily range): BP systolic 95; BP diastolic 70; PULSE 101; TEMP 97.6; O2SAT 82–99
[2019-06-01 17:13] LABS: BASO # 0.1 (0.0-0.2); EOS # 0.2 (0.0-0.7); EOS % 2.7 % (0-4.0); GRAN # 3.9 (1.4-6.5); GRAN % 56.7 % (42.2-75.2); HEMOGLOBIN 13.9 g/dl (13.5-18.0); LYMPH # 2.1 (1.2-3.4); LYMPH % 30.6 % (20.0-51.0); MEAN CELL VOLUME 95 fl (80.0-100.0); MEAN CORPUSCULAR HEMOGLOBIN 31 pg (27.0-31.0); MEAN CORPUSCULAR HGB CONC 33 g/dl (33.0-37.0); MEAN PLATELET VOLUME 9.4 fl (7.4-10.4); MONO # 0.6 (0.1-0.6); MONO % 8.9 % (1.7-9.3); PLATELET COUNT 335 K/mm3 (130-400); RED BLOOD COUNT 4.44 M/mm3 (4.20-5.60); REDCELL DISTRIBUTION WIDTH-CV 12.9 % (11.5-14.5)
[2019-06-01 17:24] LABS: INR 1.5 (0.8-3.0); PROTHROMBIN TIME 17.5 SECONDS (9.7-12.8)
[2019-06-01 17:27] LABS: PARTIAL THROMBOPLASTIN TIME 30.9 SECONDS (26.0-37.0)
[2019-06-01 17:36] LABS: ALBUMIN 4.1 gm/dL (3.5-5.0); BILIRUBIN,TOTAL 1.4 mg/dL (0.0-1.0); CALCIUM 9.1 mg/dL (8.4-10.2); CREATININE, serum 1.48 (0.66-1.25); POTASSIUM 3.3 mmol/L (3.4-5.0); TOTAL PROTEIN 7.1 gm/dL (6.4-8.2)
[2019-06-01 17:46] LABS: TROPONIN-I 0.029 ng/mL (0.000-0.035)
--- NOTE | 2019-06-01 19:26 | NUR ---
Patient arrived to unit on ER bed accompanied by SHREE Fernando who gave report a few minutes prior. Patient attached to CRM monitor when brought into room, PT stood and walked to bed. Denies any pain. Vitals stable, call light within reach, POC reviewed with patient. Will continue to monitor.
[2019-06-01 20:48] LABS: MAGNESIUM 2.3 mg/dL (1.6-2.3)
[2019-06-01 21:09] LABS: TROPONIN-I 3 HR POST INITIAL 0.629 ng/mL (0.000-0.034)
--- NOTE | 2019-06-01 23:19 | NUR ---
Dr. Salvador at bedside, reported to provider that patient BP has been running 70's/40's recently. Patient is asymptomatic, strong distal pulses, warm and awakens easily. PT states some anxiety. Provider states to reevaluate in 1hr after checking q30min x2.
[2019-06-02] VITALS (666 sets, daily range): BP systolic 87–97; BP diastolic 53–78; PULSE 100–112; TEMP 97.7–98; O2SAT 77–100
--- NOTE | 2019-06-02 03:01 | NUR ---
PT has been continually restless, anxious, and agitated throughout the night. States that he is breathing heavy and can't get comfortable, does not know why, provider notified. Educated patient that he is likely feeling SOA since O2 sats are low and he should wear oxygen. Patient attempts to wear oxygen for a few minutes after encouragment from RN but takes it off within 5 minutes stating that "it's making me worse. I can feel the air in my stomach." Educated that O2 sats are low and PT needs to wear oxygen. PT continually takes off NC. Attempted face mask O2, patient took it off immediately. Have attempted consoling patient with education, therapeutic communication, repositioning, warm blankets, snacks, medication, toileting, and recliner. PT is still very restless.
[2019-06-02 06:24] LABS: CALCIUM 9.4 mg/dL (8.4-10.2); CREATININE, serum 1.73 (0.66-1.25); MAGNESIUM 2.4 mg/dL (1.6-2.3); POTASSIUM 4.3 mmol/L (3.4-5.0)
[2019-06-02 06:40] LABS: TROPONIN-I 1.68 ng/mL (0.000-0.035)
--- NOTE | 2019-06-02 09:07 | NUR ---
Dr. Fowler rounds on patient at this time. Orders as entered CPOE.
--- NOTE | 2019-06-02 11:06 | NUR ---
Dr. Lloyd rounds on patient at this time. Orders as entered CPOE.
--- NOTE | 2019-06-02 18:07 | NUR ---
Patient intermittently restless throughout day. See PRN orders for antianxiolytic medication per Dr. Lloyd. Patient anxious about use of supplementary O2 and provided repeat education on need. Patient complains of "bloody nose" and displays tissue with scant amount of pink drainage noted. Bubbler added to HFNC for humidity and education provdied on use. Continued and consistent support provided throughout day.
[2019-06-03] VITALS (711 sets, daily range): BP systolic 73–107; BP diastolic 57–83; PULSE 98–111; TEMP 97.4–98.2; O2SAT 32–100
[2019-06-03 05:31] LABS: HEMATOCRIT 44.3 % (42.0-52.0); HEMOGLOBIN 15.1 g/dl (13.5-18.0); MEAN CELL VOLUME 93 fl (80.0-100.0); MEAN CORPUSCULAR HEMOGLOBIN 32 pg (27.0-31.0); MEAN CORPUSCULAR HGB CONC 34 g/dl (33.0-37.0); MEAN PLATELET VOLUME 9.7 fl (7.4-10.4); PLATELET COUNT 382 K/mm3 (130-400); RED BLOOD COUNT 4.75 M/mm3 (4.20-5.60); REDCELL DISTRIBUTION WIDTH-CV 13.2 % (11.5-14.5)
[2019-06-03 05:41] LABS: ALBUMIN 4.4 gm/dL (3.5-5.0); CALCIUM 9.4 mg/dL (8.4-10.2); CREATININE, serum 2.74 (0.66-1.25); MAGNESIUM 2.3 mg/dL (1.6-2.3); POTASSIUM 4.4 mmol/L (3.4-5.0); TOTAL PROTEIN 7.6 gm/dL (6.4-8.2)
[2019-06-03 05:52] LABS: BAND 1 % (0-10); LYMPHOCYTE 13 % (20.0-51.0); NEUTROPHILS 76 % (42.0-75.2); PLATELET ESTIMATE NORMAL (NORMAL)
--- NOTE | 2019-06-03 06:22 | NUR ---
CALLED AND NOTFIED ABOUT ABNORMAL LAB RESULTS INCLUDING WBC, BUN, CREAT, AND DECREASE IN UOP. PT ALSO HAS BEEN LETHARGIC BUT AFEBRILE. VERBALLY ORDERED OVER PHONE TO GET A CXRAY, URINE, LACTIC ACID, AND BLOOD CULTURES.
--- NOTE | 2019-06-03 07:21 | NUR ---
Pt AAOx4 watching TV, pt states "I dont feel as bad as I felt yesterday", although pt appears to be fatigued laying in bed. Call light in reach. Respirations equal and unlabored
--- NOTE | 2019-06-03 10:29 | NUR ---
Pt has seen MD Ricky and MD Gabino. Pt wishes to be transfered to [facility] for further care. Hospitalist and MD Ricky aware MD Nick in to see pt
--- NOTE | 2019-06-03 10:54 | NUR ---
Substance Abuse Clinician attended clinical rounds with the team. Possible transfer to [facility] discussed with patient. Following rounds, SW met with patient who was recently admitted at [facility] from 05/24/19-05/29/19. Patient sees Dr. Willard for primary care and did not see PCP in between last hospital stay and now. Patient states he saw Dr. Willard about six weeks ago. Patient lives in [place] and works for local [employer] Patient had oxygen set up at home with [facility] although reports he has not used it because he feels that he does not need it. Patient states he sees Dr. Rodriguez for Cardiology. Patient reports he does not have DPOA-HC. Next of kin would be patient's children Laura (ph#[phone]) and ALESHIA (ph#[phone]), both live in [place]. Per patient RN, patient may transfer to [facility] today.
--- NOTE | 2019-06-03 11:37 | NUR ---
Pt experienced several minutes of shortness of breath - symptoms resloved - lungs sounds clear bilaterally
--- NOTE | 2019-06-03 17:00 | NUR ---
Report phoned to SHREE Michel at [facility].
--- NOTE | 2019-06-03 17:10 | NUR ---
EMS here for transfer. Pt ambulated unassisted to stretcher. IV gtts transfered to EMS pumps, rates confirmed. All belongings with pt.
--- NOTE | 2019-06-03 17:34 | NUR ---
Donald (son) and Sheila (daughter) updated on phone. They are located in [place] and debating on visiting their father in [facility] but inclement weather may prohibit travel. All questions answered
== END 2019-06-03 17:10 | disposition short-term general hospital (02) | DRG 308 ==
LOC: COL.ER 16:46 → ICU 17:44
PROVIDERS: Family Medicine; Student in an Organized Health Care Education/Training Program; ADMIT Hospitalist
PROC: 4A02X4Z Measurement of Cardiac Electrical Activity, External Approach (ICD-10-PCS; principal; 2019-06-01)
DX: I47.2 Ventricular tachycardia (principal); I50.23 Acute on chronic systolic (congestive) heart failure; R57.0 Cardiogenic shock; I42.0 Dilated cardiomyopathy; I13.0 Hypertensive heart and chronic kidney disease with heart failure and stage 1 through stage 4 chronic kidney disease, or unspecified chronic kidney disease; N17.9 Acute kidney failure, unspecified; E87.2 Acidosis; I48.91 Unspecified atrial fibrillation; I25.10 Atherosclerotic heart disease of native coronary artery without angina pectoris; E87.6 Hypokalemia; I34.0 Nonrheumatic mitral (valve) insufficiency; N18.3 Chronic kidney disease, stage 3 (moderate); E78.5 Hyperlipidemia, unspecified; Z95.810 Presence of automatic (implantable) cardiac defibrillator; Z79.01 Long term (current) use of anticoagulants; Z95.820 Peripheral vascular angioplasty status with implants and grafts; I25.2 Old myocardial infarction; Z87.891 Personal history of nicotine dependence
CPT/HCPCS: 99222-AI; 99232-AI; 99239; J0282; J1940; J2405; J7060

== ENCOUNTER 2019-07-08 20:03 | Emergency (ER) | payer BC, MEDICARE ==
[~2019-07-08] VITALS: Ht 172.7 cm; Wt 62.7 kg
[2019-07-08 20:57] LABS: BASO # 0.1 (0.0-0.2); BASO % 0.5 % (0.0-2.0); EOS % 0.3 % (0-4.0); GRAN # 8.1 (1.4-6.5); GRAN % 81.3 % (42.2-75.2); HEMATOCRIT 38.2 % (42.0-52.0); HEMOGLOBIN 12.4 g/dl (13.5-18.0); LYMPH # 0.7 (1.2-3.4); MEAN CELL VOLUME 93 fl (80.0-100.0); MEAN CORPUSCULAR HEMOGLOBIN 30 pg (27.0-31.0); MEAN CORPUSCULAR HGB CONC 33 g/dl (33.0-37.0); MEAN PLATELET VOLUME 9.4 fl (7.4-10.4); MONO % 10.5 % (1.7-9.3); PLATELET COUNT 459 K/mm3 (130-400); RED BLOOD COUNT 4.11 M/mm3 (4.20-5.60); REDCELL DISTRIBUTION WIDTH-CV 14.7 % (11.5-14.5)
[2019-07-08 21:06] LABS: ALBUMIN 4.6 gm/dL (3.5-5.0); C-REACTIVE PROTEIN 3.7 mg/dL (0.0-0.9); CALCIUM 9.7 mg/dL (8.4-10.2); CREATININE, serum 2.69 (0.66-1.25); POTASSIUM 5.5 mmol/L (3.4-5.0)
[2019-07-08 21:52] LABS: COLLECTION METHOD CLEAN CATCH
[2019-07-08 21:58] LABS: HYALINE CAST >12 /lpf; MUCOUS Present /lpf; PH 5 (5-8); SQUAMOUS EPITHELIAL None Seen /hpf; URINE APPEARANCE Clear; URINE BACTERIA Rare /hpf; URINE BILIRUBIN Negative (NEGATIVE); URINE BLOOD Negative (NEGATIVE); URINE COLOR Yellow; URINE GLUCOSE Negative (NEGATIVE); URINE KETONE Negative (NEGATIVE); URINE LEUKOCYTE ESTERASE Negative (NEGATIVE); URINE NITRATE Negative (NEGATIVE); URINE PROTEIN(semi-quant) Negative (NEGATIVE); URINE RBC 0-2 /hpf; URINE UROBILINOGEN Negative (NEGATIVE)
[2019-07-09 02:45] VITALS: BP 90/60; PULSE 98; TEMP 98.9
== END 2019-07-09 02:53 | disposition short-term general hospital (02) ==
LOC: COL.ER 20:03
PROVIDERS: Emergency Medicine
DX: N17.9 Acute kidney failure, unspecified (principal); I50.9 Heart failure, unspecified; E87.5 Hyperkalemia; I48.91 Unspecified atrial fibrillation; J44.9 Chronic obstructive pulmonary disease, unspecified; Z79.01 Long term (current) use of anticoagulants; Z86.718 Personal history of other venous thrombosis and embolism
CPT/HCPCS: J1815; J2405